=== PATIENT | male | born 1980 | race Caucasian/White ===

== ENCOUNTER 2021-08-24 14:01 | Emergency (ER) | payer OTHER ==
[~2021-08-24] VITALS: Ht 180.3 cm; Wt 123.0 kg
[2021-08-24 14:06] VITALS: BP 126/77
[2021-08-24] MEDS ORDERED: LABE300T2 PO (14:25)
== END 2021-08-24 15:50 | disposition home or self-care (01) ==
LOC: M ED 14:01
DX: M25.511 Pain in right shoulder (principal); R07.89 Other chest pain; J44.9 Chronic obstructive pulmonary disease, unspecified; J45.909 Unspecified asthma, uncomplicated; F31.9 Bipolar disorder, unspecified; F33.9 Major depressive disorder, recurrent, unspecified; G40.909 Epilepsy, unspecified, not intractable, without status epilepticus; F15.11 Other stimulant abuse, in remission; Z87.820 Personal history of traumatic brain injury; Z79.899 Other long term (current) drug therapy; Z88.8 Allergy status to other drugs, medicaments and biological substances; F17.210 Nicotine dependence, cigarettes, uncomplicated